=== PATIENT | female | born 1965 | race Caucasian/White ===

== ENCOUNTER 2018-08-08 10:37 | Outpatient (CLI) | payer BC, OTHER ==
--- NOTE | 2018-08-08 11:30 | RAD ---
CHEST TWO VIEWS: Comparison: 07-08-16 History: COPD exacerbation. FINDINGS: Lung volumes are diminished. There is elevation of the right hemidiaphragm which may be due atelectas is. Heart is enlarged. Pulmonary vessels are slightly prominent. No pneumothorax or osseous abnormality. IMPRESSION: Elevation of the right hemidiaphragm which may be due to right lower lobe atelectasis. POS: C
== END 2018-08-08 10:38 | disposition home or self-care (01) ==
LOC: MADRAD 10:37
PROVIDERS: ATTEND Family Medicine
DX: J44.1 Chronic obstructive pulmonary disease with (acute) exacerbation (principal); J98.6 Disorders of diaphragm
CPT/HCPCS: 71046

== ENCOUNTER 2019-08-30 08:08 | Outpatient (CLI) | payer BC ==
--- NOTE | 2019-08-30 08:41 | CT ---
CT ABDOMEN PELVIS WITHOUT IV CONTRAST: HISTORY:Acute right flank pain, dysuria, left adrenalectomy COMPARISON: CT abdomen pelvis with contrast dated 05/17/2016 DISCLAIMER: Absence of oral and IV contrast reduces the sensitivity of the exam particularly for the evaluation of solid organs and bowel. FINDINGS: Chronic changes in the lung bases are again seen. There is decreased attenuation of the liver compare d to the spleen, consistent with fatty infiltration. A 3 cm cyst in the liver near the falciform ligament is again noted. There are calcified gallstones. No free air or free fluid is seen in the abd omen or pelvis. The patient is status post left adrenalectomy. There is a 3.2 x 3.8 x 4.3 cm right adrenal mass with attenuation values consistent with a benign adenoma. No calculi are seen in the kidneys, ureters or the urinary bladder. No hydroureteronephrosis is noted in either side. Uterus and ovaries are present. There are vascular calcifications without evidence of aneurysmal dila tation of the abdominal aorta. There is colonic diverticulosis without diverticulitis. There are degenerative changes in the spine. IMPRESSION: 1. No CT evidence of urinary tract calculi or obstruction 2. Fatty liver 3. Hepatic cyst 4. Right adrenal adenoma 5. Colonic diverticulosis
== END 2019-08-30 08:09 | disposition home or self-care (01) ==
LOC: MADCT 08:08
PROVIDERS: ATTEND Family Medicine
DX: N30.00 Acute cystitis without hematuria (principal); R10.9 Unspecified abdominal pain; R30.0 Dysuria; N20.9 Urinary calculus, unspecified
CPT/HCPCS: 74176

== ENCOUNTER 2022-09-05 11:11 | Emergency (ER) | payer BC ==
[2022-09-05 12:30] LABS: INR-International Normal Ratio 0.9; Prothrombin Time 12.8 sec (12.0-14.7)
[2022-09-05 12:31] LABS: #Eosinphils 0.1 thou/uL (0.0-0.7); #Lymphocytes 1.7 thou/uL (1.20-3.40); #Monocytes 0.3 thou/uL (0.11-0.59); #Neutrophils 3.7 thou/uL (1.40-6.50); %Basophils 0.8 % (0.0-1.0); %Eosinophils 1.2 % (0.0-10.0); %Lymphocytes 29.3 % (21.0-51.0); %Monocytes 4.8 % (0.0-10.0); %Neutrophils 63.8 % (42.0-75.0); Hemoglobin 15.4 g/dL (12.0-16.0); Mean Corpuscular HGB CONC 33.1 g/dL (32.0-36.0); Mean Corpuscular Hemoglobin 30.5 pg (27.0-31.0); Mean Corpuscular Volume 92.3 fl (78.0-98.0); Mean Platelet Volume 6.1 fL (7.4-10.4); PTT 33.3 sec (22.9-36.1); Platelet Count 251 10x3/uL (130-400); RBC Distribution Width 11.1 % (11.5-14.5); Red Blood Cell (RBC) Count 5.06 mill/uL (4.20-5.40); White Blood Cell (WBC) Count 5.8 10x3/uL (4.8-10.8)
[2022-09-05 12:33] LABS: D-Dimer Test 0.27 *mcg/mL (0.27-0.43)
[2022-09-05 12:35] LABS: Bilirubin Negative (Negative); Blood, Urine Negative (Negative); Clarity Clear (Clear); Glucose, Urine (Dipstick) Negative (Negative); Ketone, Urine Negative (Negative); Leukocyte Small (Negative); Nitrite Negative (Negative); Protein, Urine (Dipstick) Negative (Neg-Trace); Specific Gravity, Urine 1.015 (1.005-1.030); Urobilinogen 0.2 mg/dL (Less than 2); pH, Urine 6.5 (5.0-9.0)
[2022-09-05 12:39] LABS: ALT (SGPT) 13 U/L (8-55); AST (SGOT) 16 U/L (5-34); Alkaline Phosphatase 82 U/L (40-110); Anion Gap 16 mmol/L (10-20); BUN (Urea Nitrogen) 12 mg/dL (9.8-20.1); Bilirubin, Total 0.5 mg/dL (0.2-1.2); CK (CPK) 39 U/L (29-168); Calc. Creatinine Clearance 0 mL/min (70-130); Calcium 9.7 mg/dL (7.8-10.44); Carbon Dioxide 23 mmol/L (22-29); Chloride 106 mmol/L (98-107); Estimated GFR 91; Globulin 3.1 g/dL (2.4-3.5); Glucose 86 mg/dL (70-105); Magnesium 2.1 mg/dL (1.6-2.6); Potassium 4.1 mmol/L (3.5-5.1); Protein, Total 7.1 g/dL (6.0-8.3); Sodium 141 mmol/L (136-145)
[2022-09-05 12:40] LABS: CKMB 0.7 ng/mL (0-6.6)
[2022-09-05 12:51] LABS: Bacteria/HPF 1+ HPF (None Seen); RBC/HPF 0-3 HPF (0-3); Squamous Epithelial 0-3 HPF (0-3)
[2022-09-05 12:55] LABS: Amphetamine Not Detected (NotDetected); Barbiturates Screen Not Detected (NotDetected); Benzodiazepine Screen Not Detected (NotDetected); Cocaine Metabolite Screen Not Detected (NotDetected); Medtox Control Line Valid? VALID (VALID); Methadone Not Detected (NotDetected); Methamphetamine Not Detected (NotDetected); Opiate Screen Not Detected (NotDetected); Oxycodone Screen Not Detected (NotDetected); Phencyclidine (PCP) Not Detected (NotDetected); THC/Cannabinoid Screen Not Detected (NotDetected); Tricyclic Screen Not Detected (NotDetected)
[2022-09-05] MEDS ORDERED: Sodium Chloride 0.9% 1,000 ML ONE (13:20)
[2022-09-05] MEDS ORDERED: Sodium Chloride 0.9% 100 ML ONE (13:20)
[2022-09-05] MEDS ORDERED: cefTRIAXone\\ROCEPHIN 1 GM VIAL ONE (13:20)
[2022-09-05] MEDS ORDERED: Ketorolac Tromethamine 30 MG/ML VIAL ONE (15:55)
== END 2022-09-05 19:05 | disposition home or self-care (01) ==
LOC: MADERS 11:11
DX: N39.0 Urinary tract infection, site not specified (principal); R42 Dizziness and giddiness; I10 Essential (primary) hypertension; Z86.73 Personal history of transient ischemic attack (TIA), and cerebral infarction without residual deficits; F17.210 Nicotine dependence, cigarettes, uncomplicated
CPT/HCPCS: 70450; 71045; 80053; 80306; 81003; 81015; 82550; 82553; 83735; 84443; 84484; 85025; 85379; 85610; 85730; 93005; 96361; 96365; 96375; J0696; J1885; J3490; J7050

== ENCOUNTER 2024-01-30 08:31 | Emergency (ER) | payer BC ==
[2024-01-30] MEDS ORDERED: Nitroglycerin 0.4 MG TAB 1 EACH ONE ×2 (09:04→09:30)
[2024-01-30] MEDS ORDERED: Aspirin Chewable 81 MG TAB ONE (09:04)
[2024-01-30 09:19] LABS: ALT (SGPT) 11 U/L (8-55); AST (SGOT) 17 U/L (5-34); Albumin 4.2 g/dL (3.5-5.0); Alkaline Phosphatase 73 U/L (40-110); Anion Gap 16 mmol/L (10-20); BUN (Urea Nitrogen) 12 mg/dL (9.8-20.1); Bilirubin, Total 0.5 mg/dL (0.2-1.2); Calc. Creatinine Clearance 0 mL/min (70-130); Calcium 9.6 mg/dL (7.8-10.44); Carbon Dioxide 24 mmol/L (22-29); Chloride 107 mmol/L (98-107); Estimated GFR 84; Globulin 3.1 g/dL (2.4-3.5); Glucose 133 mg/dL (70-105); Lipase 62 U/L (8-78); Potassium 3.9 mmol/L (3.5-5.1); Protein, Total 7.3 g/dL (6.0-8.3); Sodium 143 mmol/L (136-145)
[2024-01-30 09:22] LABS: Hemoglobin 15.8 g/dL (12.0-16.0); INR-International Normal Ratio 0.9; Mean Corpuscular HGB CONC 30.4 g/dL (32.0-36.0); Mean Corpuscular Hemoglobin 29.1 pg (27.0-31.0); Mean Corpuscular Volume 95.9 fl (78.0-98.0); Mean Platelet Volume 5.8 fL (7.4-10.4); Platelet Count 189 10x3/uL (130-400); Prothrombin Time 12.3 sec (12.0-14.7); RBC Distribution Width 12.6 % (11.5-14.5); Red Blood Cell (RBC) Count 5.42 mill/uL (4.20-5.40); White Blood Cell (WBC) Count 6.1 10x3/uL (4.8-10.8)
[2024-01-30 09:23] LABS: Band 2 % (5-11); Lymphocytes 16 % (21-51); MDiff Complete? YES; Manual Diff?? YES; Monocytes 4 % (0-10); Neutrophil 67 % (42-75); PTT 30.8 sec (22.9-36.1); RBC Morph Comment Within Normal Limits; Reactive Lymphocytes 11 % (0-10)
[2024-01-30 09:24] LABS: Platelet Adequacy Comment Appears Adequate
[2024-01-30 09:25] LABS: D-Dimer Test 0.27 mcg/mL (0.27-0.43); Troponin I Less than 0.010 ng/mL (< 0.028)
[2024-01-30] MEDS ORDERED: Nitroglycerin 2% Ointment 1 INCH/1 GM Packet ONE (09:36)
[2024-01-30] MEDS ORDERED: Acetaminophen 500 MG TAB ONE (09:36)
[2024-01-30 12:23] LABS: Troponin I Less than 0.010 ng/mL (< 0.028)
[2024-01-30 15:12] LABS: Troponin I Less than 0.010 ng/mL (< 0.028)
== END 2024-01-30 15:32 | disposition short-term general hospital (02) ==
LOC: MADERS 08:31
DX: R07.89 Other chest pain (principal); F17.210 Nicotine dependence, cigarettes, uncomplicated
CPT/HCPCS: 36415; 71045; 80053; 83690; 83880; 84484; 85025; 85379; 85610; 85730; 93005; 94760